=== PATIENT | female | born 1970 | race Caucasian/White ===

== ENCOUNTER → 2019-11-11 07:04 | Outpatient (CLI) | payer OTHER, SELFPAY ==
--- NOTE | 2019-11-11 07:06 | DI.US.S_ITS ---
PROCEDURE: US PELVIC COMPLETE INDICATIONS: POST MENOPAUSAL BLEEDING TECHNIQUE: Real-time scanning was performed of the pelvic organs, with image documentation. Additional endovaginal scanning was necessary due to incomplete visualization of the adnexal and endometrial structures by transabdominal scanning. COMPARISON: None. FINDINGS: Transabdominal scanning: Limited scanning through the kidneys shows no hydronephrosis. No pathologic free abdominal or pelvic fluid. Endovaginal scanning: Uterus: Uterus is normal in size at 7.3 x 3.3 x 5.4 cm. 8 x 4 x 8 mm intramural fibroid is noted in the anterior myometrium. 8 x 4 x 7 mm intramural fibroid is also seen in posterior myometrium. The endometrium measures 2.0 mm in combined thickness. No gross endometrial mass or fluid. Ovaries: Right ovary measures 2.1 x 1.5 x 2.1 cm in size. Left ovary is not visualized on this study. A simple cyst is noted in right ovary measures 1.6 x 1 x 1.3 cm in size. No gross solid appearing ovarian lesion. IMPRESSION: 1. 2 small uterine fibroids as above. No endometrial mass or fluid. No abnormal endometrial thickening. 2. Simple cyst in right ovary. No gross solid appearing ovarian lesion. Left ovary is not visualized on this study. Dictated by: Liam Amaya M.D. on 11/11/2019 at 11:10 Approved by: Liam Amaya M.D. on 11/11/2019 at 11:15
== END ==
PROVIDERS: Referring Provider Obstetrics & Gynecology; Visit Provider Obstetrics & Gynecology
DX: N92.1 Excessive and frequent menstruation with irregular cycle (principal); D25.1 Intramural leiomyoma of uterus; N83.291 Other ovarian cyst, right side; Z79.3 Long term (current) use of hormonal contraceptives
CPT/HCPCS: 76830; 76856

== ENCOUNTER → 2020-01-29 09:32 | Outpatient (CLI) | payer OTHER, SELFPAY | PROVIDERS: Referring Provider Obstetrics & Gynecology; Visit Provider Obstetrics & Gynecology | DX: N91.5 Oligomenorrhea, unspecified (principal) | CPT/HCPCS: 36415; 83001 ==

== ENCOUNTER → 2022-12-23 07:43 | Outpatient (CLI) | payer OTHER, SELFPAY ==
--- NOTE | 2022-12-23 07:44 | DI.US.S_ITS ---
PROCEDURE: US PELVIC COMPLETE INDICATIONS: Post menopausal bleeding TECHNIQUE: Real-time scanning was performed of the pelvic organs, with image documentation. Additional endovaginal scanning was necessary due to incomplete visualization of the adnexal and endometrial structures by transabdominal scanning. COMPARISON: [facility], , US PELVIC COMPLETE, 11/11/2019, 7:25. FINDINGS: Uterus: Uterus is anteverted and normal in size at 6.7 x 3.4 x 5.0 cm. The myometrium is homogeneous. No discrete uterine fibroid is seen. The endometrium measures 5 mm combined thickness. No endometrial mass or fluid is seen. Ovaries: The right ovary is not well visualized. The left ovary measures 3.9 x 2.5 x 3.0 cm, with a calculated ovarian volume of 15.2 cc. Less than 12 follicles can be seen in left ovary. Simple cyst is seen in right adnexa measures 2.8 x 1.3 x 2.1 cm in size. Simple cyst is seen in left ovary measures 3 x 2.4 x 2.9 cm in size. No adnexal masses are seen. Other: No pathologic free abdominal or pelvic fluid. IMPRESSION: 1. Normal appearing uterus and endometrium. 2. Simple left ovarian cyst and simple appearing right adnexal cyst as above. Follow-up sonographic in 4-6 weeks is recommended. No solid appearing adnexal mass. We strive to produce accurate, complete, and clear reports of imaging services. To assist us in improving patient care, this report was composed using standard report templates and voice recognition software. Therefore, it may contain abnormal punctuation, insertions and/or omissions. Occasional wrong-word or sound-alike substitutions may occur. Though we review the report and make efforts to correct it, we do recommend that the report be read carefully in proper context to recognize any text inaccuracies. Dictated by: Liam Amaya M.D. on 12/23/2022 at 10:16 Approved by: Liam Amaya M.D. on 12/23/2022 at 10:18
== END ==
PROVIDERS: Referring Provider Obstetrics & Gynecology; Visit Provider Obstetrics & Gynecology
DX: N95.0 Postmenopausal bleeding (principal); N83.292 Other ovarian cyst, left side; N94.89 Other specified conditions associated with female genital organs and menstrual cycle
CPT/HCPCS: 76830; 76856

== ENCOUNTER → 2023-01-31 06:49 | Outpatient (CLI) | payer OTHER, SELFPAY ==
--- NOTE | 2023-01-31 06:51 | DI.US.S_ITS ---
PROCEDURE: US PELVIC COMPLETE INDICATIONS: PMB TECHNIQUE: Real-time scanning was performed of the pelvic organs, with image documentation. Additional endovaginal scanning was necessary due to incomplete visualization of the adnexal and endometrial structures by transabdominal scanning. COMPARISON: [facility], US, US PELVIC COMPLETE, 12/23/2022, 8:06. FINDINGS: Uterus: Uterus is anteverted and normal in size at 5.8 x 2.7 x 5.2 cm. The myometrium is homogeneous. The endometrium measures 1.2 mm combined thickness. Ovaries: The bilateral ovaries are not visualized. There is a right adnexal cyst which measures 2.2 x 1.3 x 3.0 cm. There are scattered internal echoes and posterior acoustic enhancement. This measured 2.8 x 1.3 x 2.1 cm on the comparison ultrasound dated December 23, 2022. Other: No pathologic free abdominal or pelvic fluid. IMPRESSION: 1. Nonvisualization of the bilateral ovaries on the current study. 2. Right adnexal cyst similar in size to the prior study. Annual sonographic surveillance recommended in a postmenopausal patient. We strive to produce accurate, complete, and clear reports of imaging services. To assist us in improving patient care, this report was composed using standard report templates and voice recognition software. Therefore, it may contain abnormal punctuation, insertions and/or omissions. Occasional wrong-word or sound-alike substitutions may occur. Though we review the report and make efforts to correct it, we do recommend that the report be read carefully in proper context to recognize any text inaccuracies. Dictated by: Luciana Feldman M.D. on 01/31/2023 at 8:24 Approved by: Luciana Feldman M.D. on 01/31/2023 at 8:31
== END ==
PROVIDERS: PCP Family Medicine Sports Medicine; Referring Provider Specialist; Visit Provider Specialist
DX: N95.0 Postmenopausal bleeding (principal); N94.89 Other specified conditions associated with female genital organs and menstrual cycle
CPT/HCPCS: 76830; 76856

== ENCOUNTER → 2024-01-05 07:46 | Outpatient (CLI) | payer OTHER, SELFPAY ==
--- NOTE | 2024-01-05 07:47 | DI.US.S_ITS ---
PROCEDURE: US PELVIC COMPLETE INDICATIONS: Annual follow up R adnexal cyst TECHNIQUE: Real-time scanning was performed of the pelvic organs, with image documentation. Additional endovaginal scanning was necessary due to incomplete visualization of the adnexal and endometrial structures by transabdominal scanning. COMPARISON: [facility], US, US PELVIC COMPLETE, 01/31/2023, 6:57. FINDINGS: Uterus: Uterus is anteverted and normal in size at 6.7 x 2.4 x 3.6 cm. The myometrium is heterogeneous. The endometrium measures 3 mm combined thickness. Cervix and vagina are within normal limits. Ovaries: The right ovary measures 3.2 x 1.5 x 2 cm, with a calculated ovarian volume of 4.9 cc. Complex right ovarian cyst measures 1.8 x 1.3 x 2.9 cm, previously 2.2 x 1.3 x 3 cm. No nodular septations or solid component. The left ovary is not well seen. Less than 12 follicles can be seen in the right ovary. No adnexal solid masses are seen. Other: No pathologic free abdominal or pelvic fluid. IMPRESSION: 1. Right adnexal mass is similar in size to prior study. Recommend annual sonographic surveillance in a postmenopausal patient. 2. Left ovary is not well seen. 3. Endometrial thickness is 3 mm. We strive to produce accurate, complete, and clear reports of imaging services. To assist us in improving patient care, this report was composed using standard report templates and voice recognition software. Therefore, it may contain abnormal punctuation, insertions and/or omissions. Occasional wrong-word or sound-alike substitutions may occur. Though we review the report and make efforts to correct it, we do recommend that the report be read carefully in proper context to recognize any text inaccuracies. Dictated by: Edu Bazzi M.D. on 01/05/2024 at 9:21 Approved by: Edu Bazzi M.D. on 01/05/2024 at 9:25
== END ==
LOC: US 07:47
PROVIDERS: PCP Family Medicine Sports Medicine; Referring Provider Obstetrics & Gynecology; Visit Provider Obstetrics & Gynecology
DX: N95.0 Postmenopausal bleeding (principal); N83.201 Unspecified ovarian cyst, right side; N83.202 Unspecified ovarian cyst, left side; N94.9 Unspecified condition associated with female genital organs and menstrual cycle
CPT/HCPCS: 76856

== ENCOUNTER → 2024-05-15 10:31 | Outpatient (CLI) | payer OTHER, SELFPAY ==
[2024-05-15 18:33] LABS: Cancer Antigen 125 5.9 U/mL (0-35)
== END ==
LOC: LAB 10:31
PROVIDERS: PCP Family Medicine Sports Medicine; Referring Provider Obstetrics & Gynecology; Visit Provider Obstetrics & Gynecology
DX: N83.209 Unspecified ovarian cyst, unspecified side (principal)
CPT/HCPCS: 36415; 86304